=== PATIENT | male | born 1935 | race Caucasian/White ===

== ENCOUNTER 2017-10-10 09:32 | Observation (INO) | payer MEDICARE, BC ==
[~2017-10-10] VITALS: Ht 185.4 cm; Wt 82.5 kg
[2017-10-10 09:41] VITALS: BP 218/102; PULSE 81; RESP 18; TEMP 97.4; O2SAT 98
[2017-10-10] MEDS ORDERED: ONDANSETRON HCL 4 MG/2 ML VIAL IV PUSH ONE (10:30)
[2017-10-10 10:35] LABS: AUTOMATED NEUTROPHIL # 9.9 TH/MM3 (1.8-7.7); BASOPHIL # 0.3 TH/MM3 (0-0.2); BASOPHIL % 3.2 % (0.0-2.0); EOSINOPHIL % 0.1 % (0.0-4.0); HEMATOCRIT 42.2 % (39.0-51.0); HEMOGLOBIN 13.9 GM/DL (13.0-17.0); LYMPH % 3.6 % (9.0-44.0); LYMPHOCYTE # 0.4 TH/MM3 (1.0-4.8); MEAN CELL VOLUME 95.7 FL (80.0-100.0); MEAN CORPUSCULAR HEMOGLOBIN 31.6 PG (27.0-34.0); MEAN PLATELET VOLUME 7.2 FL (7.0-11.0); MONO % 2.3 % (0.0-8.0); MONOCYTE # 0.3 TH/MM3 (0-0.9); NEUT % 90.8 % (16.0-70.0); PLATELET COUNT 201 TH/MM3 (150-450); RED BLOOD COUNT 4.41 MIL/MM3 (4.50-5.90); RED CELL DISTRIBUTION WIDTH 18.2 % (11.6-17.2); WHITE BLOOD COUNT 10.9 TH/MM3 (4.0-11.0)
[2017-10-10 10:44] LABS: CHLORIDE 98 MEQ/L (98-107); SODIUM (NA) 135 MEQ/L (136-145)
[2017-10-10] MEDS ORDERED: MORPHINE SULFATE 2 MG/ML INJ IV PUSH ONE (10:45)
[2017-10-10 10:47] LABS: CALCIUM 8.9 MG/DL (8.5-10.1)
[2017-10-10 10:48] LABS: ALBUMIN 3.9 GM/DL (3.4-5.0); BICARBONATE 24.2 MEQ/L (21.0-32.0); BLOOD UREA NITROGEN 24 MG/DL (7-18); GLUCOSE,RANDOM 171 MG/DL (74-106)
[2017-10-10 10:51] LABS: ALT (GPT) 26 U/L (12-78); AST (GOT) 23 U/L (15-37); GLOMERULAR FILTRATION RATE 45 ML/MIN (>89)
[2017-10-10 10:52] LABS: TOTAL BILIRUBIN ADULT 1.4 MG/DL (0.2-1.0); TOTAL PROTEIN 7.7 GM/DL (6.4-8.2)
[2017-10-10 10:54] LABS: ALKALINE PHOSPHATASE 100 U/L (45-117)
[2017-10-10] MEDS ORDERED: ATOR10TA15 PO (11:02)
[2017-10-10] MEDS ORDERED: CARV3.125 PO (11:02)
[2017-10-10] MEDS ORDERED: FERR325T18 PO (11:02)
[2017-10-10] MEDS ORDERED: AMIO0.1T PO (11:02)
[2017-10-10] MEDS ORDERED: APIX5TAB PO (11:02)
[2017-10-10] MEDS ORDERED: CELE200C PO (11:02)
[2017-10-10 11:12] VITALS: RESP 16; O2SAT 99
[2017-10-10 11:24] LABS: BILIRUBIN, URINE NEG (NEG); BLOOD, URINE NEG (NEG); GLUCOSE,URINE NEG (NEG); KETONE, URINE NEG (NEG); NITRITE,URINE NEG (NEG); PH, URINE 7.5 (5.0-8.5); URINE COLOR YELLOW (YELLW/STRAW); URINE LEUKOCYTE ESTERASE NEG (NEG)
[2017-10-10 11:34] LABS: SQUAMOUS EPITHELIAL CELL URINE 0-5 /hpf (0-5)
[2017-10-10] MEDS ORDERED: IOHEXOL 350 MG/ML 10 ML VIAL (for RAD DIAG) IVCONTRAST ONE (11:38)
--- NOTE | 2017-10-10 11:57 | PD ---
HPI Chief Complaint: Abdominal Pain Time Seen by Provider: 10:26 Travel History International Travel<30 days: No Contact w/Intl Traveler<30days: No Traveled to known affect area: No History of Present Illness HPI 82-year-old male presents with vomiting and diffuse abdominal pain since 1 AM this morning. He denies recurrent history of this. He states he went to an urgent care and they sent him here for further evaluation. He states he is visiting from out of town. He denies any other concurrent complaints. Quality is sharp. Severity is moderate. He denies specific migration the pain. Duration is since 1 AM this morning. He does note history of a hernia to his abdomen but denies prior history of obstruction. He states his last bowel movement was this morning and was a little loose. PFSH Past Medical History Hx Anticoagulant Therapy: Yes (ELIQUIS) Cardiac Catheterization: Yes Cardiovascular Problems: Yes (PACEMAKER, TRIPLE CABG) High Cholesterol: Yes Coronary Artery Disease: Yes Hypertension: Yes Thyroid Disease: Yes (hypo ) Tetanus Vaccination: Unknown Influenza Vaccination: Yes Past Surgical History Appendectomy: Yes Cardiac Surgery: Yes (triple bypass 2000, 3 stents) Cholecystectomy: Yes Coronary Artery Bypass Graft: Yes Pacemaker: Yes Other Surgery: Yes (lamenectomy ) Social History Alcohol Use: Yes (daily) Tobacco Use: No Substance Use: No Allergies-Medications (Allergen,Severity, Reaction): Coded Allergies: No Known Allergies (Unverified , 10/10/17) Reported Meds & Prescriptions Reported Meds & Active Scripts Active Reported Eliquis (Apixaban) 5 Mg Tab 10 Mg PO BID Ferrous Sulfate 325 Mg (65 Mg Iron) Tablet 325 Mg PO DAILY Amiodarone (Amiodarone HCl) 100 Mg Tab 100 Mg PO DAILY Atorvastatin (Atorvastatin Calcium) 10 Mg Tab 10 Mg PO HS Celebrex (Celecoxib) 200 Mg Cap 200 Mg PO DAILY Coreg (Carvedilol) 3.125 Mg Tab 3.125 Mg PO BID Review of Systems Except as stated in HPI: all other systems reviewed are Neg Physical Exam Narrative GENERAL: 82-year-old male in no apparent distress SKIN: Focused skin assessment warm/dry. HEAD: Atraumatic. Normocephalic. EYES: No scleral icterus. No injection or drainage. ENT: No nasal bleeding or discharge. Mucous membranes pink and moist. NECK: Trachea midline. CARDIOVASCULAR: Regular rate and rhythm. No murmur appreciated. RESPIRATORY: No accessory muscle use. Clear to auscultation. Breath sounds equal bilaterally. GASTROINTESTINAL: Abdomen soft, diffusely tender, central midline reducible hernia just above the umbilicus noted, nondistended. MUSCULOSKELETAL: No obvious deformities. No clubbing. No cyanosis. NEUROLOGICAL: Awake and alert. No obvious cranial nerve deficits. Motor grossly within normal limits. Normal speech Data Data Last Documented VS Vital Signs Date Time Temp Pulse Resp B/P (MAP) Pulse Ox O2 Delivery O2 Flow Rate FiO2 10/10/17 12:18 62 17 160/70 (100) 96 Room Air 10/10/17 09:41 97.4 Orders Orders Complete Blood Count With Diff (10/10/17 10:26) Comprehensive Metabolic Panel (10/10/17 10:26) Urinalysis - C+S If Indicated (10/10/17 10:26) Lipase (10/10/17 10:26) Ct Abd/Pel W Iv Contrast(Rout) (10/10/17 ) Iv Access Insert/Monitor (10/10/17 10:26) Oximetry (10/10/17 10:26) Ondansetron Inj (Zofran Inj) (10/10/17 10:30) Morphine Inj (Morphine Inj) (10/10/17 10:45) Iohexol 350 Inj (Omnipaque 350 Inj) (10/10/17 11:38) Sodium Chlorid 0.9% 500 Ml Inj (Ns 500 M (10/10/17 12:00) Admit Order (Ed Use Only) (10/10/17 12:25) Labs Laboratory Tests Test 10/10/17 10:31 10/10/17 11:10 White Blood Count 10.9 TH/MM3 Red Blood Count 4.41 MIL/MM3 Hemoglobin 13.9 GM/DL Hematocrit 42.2 % Mean Corpuscular Volume 95.7 FL Mean Corpuscular Hemoglobin 31.6 PG Mean Corpuscular Hemoglobin Concent 33.0 % Red Cell Distribution Width 18.2 % Platelet Count 201 TH/MM3 Mean Platelet Volume 7.2 FL Neutrophils (%) (Auto) 90.8 % Lymphocytes (%) (Auto) 3.6 % Monocytes (%) (Auto) 2.3 % Eosinophils (%) (Auto) 0.1 % Basophils (%) (Auto) 3.2 % Neutrophils # (Auto) 9.9 TH/MM3 Lymphocytes # (Auto) 0.4 TH/MM3 Monocytes # (Auto) 0.3 TH/MM3 Eosinophils # (Auto) 0.0 TH/MM3 Basophils # (Auto) 0.3 TH/MM3 CBC Comment AUTO DIFF Differential Comment AUTO DIFF CONFIRMED Blood Urea Nitrogen 24 MG/DL Creatinine 1.50 MG/DL Random Glucose 171 MG/DL Total Protein 7.7 GM/DL Albumin 3.9 GM/DL Calcium Level 8.9 MG/DL Alkaline Phosphatase 100 U/L Aspartate Amino Transf (AST/SGOT) 23 U/L Alanine Aminotransferase (ALT/SGPT) 26 U/L Total Bilirubin 1.4 MG/DL Sodium Level 135 MEQ/L Potassium Level 4.0 MEQ/L Chloride Level 98 MEQ/L Carbon Dioxide Level 24.2 MEQ/L Anion Gap 13 MEQ/L Estimat Glomerular Filtration Rate 45 ML/MIN Lipase 108 U/L Urine Color YELLOW Urine Turbidity CLEAR Urine pH 7.5 Urine Specific [place] 1.015 Urine Protein TRACE mg/dL Urine Glucose (UA) NEG mg/dL Urine Ketones NEG mg/dL Urine Occult Blood NEG Urine Nitrite NEG Urine Bilirubin NEG Urine Urobilinogen 1.0 MG/DL Urine Leukocyte Esterase NEG Urine Squamous Epithelial Cells 0-5 /hpf Microscopic Urinalysis Comment CULT NOT INDICATED MDM Medical Decision Making Medical Screen Exam Complete: Yes Emergency Medical Condition: Yes Medical Record Reviewed: Yes (past history confirmed) Interpretation(s) CBC & BMP Diagram 10/10/17 10:31 Total Protein 7.7, Albumin 3.9, Calcium Level 8.9, Alkaline Phosphatase 100, Aspartate Amino Transf (AST/SGOT) 23, Alanine Aminotransferase (ALT/SGPT) 26, Total Bilirubin 1.4 H Last 24 hours Impressions Abdomen/Pelvis CT 10/10/17 0000 Signed Impressions: Service Date/Time: Tuesday, October 10, 2017 11:30 - CONCLUSION: 1. Mildly prominent fluid filled loops of small bowel. A bursa diagnosis includes mild ileus. Cannot definitely exclude a very early obstructive pattern. This could be followed. No free fluid or free air. 2. Prostatic enlargement. 3. Complex cyst upper pole right kidney containing some calcification. 4. Dense coronary calcifications. Wero Tomlinson MD Differential Diagnosis Stone, obstruction, pancreatitis, gastroenteritis Narrative Course Will check blood work, urinalysis, CT scan abdominal pelvis and dose with Zofran and pain medication and reevaluate Patient updated and given CT findings agrees to observation for serial abdominal exams and gentle IV fluids with renal insufficiency. Physician Communication Physician Communication dr rodgers agrees to observation Diagnosis Primary Impression: Abdominal pain Qualified Codes: R10.9 - Unspecified abdominal pain Additional Impression: Renal insufficiency Admitting Information Admitting Physician Requests: Observation Vickie Mcarthur MD Oct 10, 2017 11:57
--- NOTE | 2017-10-10 11:59 | RADRPT ---
EXAM DATE/TIME: 10/10/2017 11:30 [facility] COMPARISON: No previous studies available for comparison. INDICATIONS : Diffuse abdominal pain. Nausea and vomiting. IV CONTRAST: 85 cc Omnipaque 350 (iohexol) IV ORAL CONTRAST: No oral contrast ingested. RADIATION DOSE: 12.94 CTDIvol (mGy) MEDICAL HISTORY : Cardiovascular disease. SURGICAL HISTORY : Pacemaker. Cholecystectomy.Appendectomy.CABG ENCOUNTER: Initial ACUITY: 1 day PAIN SCALE: 10/10 LOCATION: Diffuse abdomen. TECHNIQUE: Volumetric scanning of the abdomen and pelvis was performed. Using automated exposure control and ad justment of the mA and/or kV according to patient size, radiation dose was kept as low as reasonably achievable to obtain optimal diagnostic quality images. DICOM format image data is available electro nically for review and comparison. FINDINGS: Lung bases are clear. Pacer leads overlie right atrium and right ventricle. Dense coronary calcificat ions. Dense coronary calcifications. No acute findings in the liver, spleen, adrenals, pancreas. Complex ex ophytic cyst upper pole right kidney measuring about 2.5 cm in diameter. There is some borderline dilatation of multiple fluid filled loops of small bowel. This probably repr esents an ileus although cannot exclude early distal obstruction. Postoperative cholecystectomy, appendectomy. Advanced degenerative changes in lumbar spine. Small hia osvaldo hernia. CONCLUSION: 1. Mildly prominent fluid filled loops of small bowel. A bursa diagnosis includes mild ileus. Cannot definitely exclude a very early obstructive pattern. This could be followed. No free fluid or free ai r. 2. Prostatic enlargement. 3. Complex cyst upper pole right kidney containing some calcification. 4. Dense coronary calcifications. Wero Tomlinson MD on October 10, 2017 at 11:46 Board Certified Radiologist. This report was verified electronically.
[2017-10-10] MEDS ORDERED: SODIUM CHLORID 0.9% 500 ML INJ 500 ML IV ONE (12:00)
[2017-10-10 12:18] VITALS: BP 160/70; PULSE 62; RESP 17; O2SAT 96
[2017-10-10] MEDS ORDERED: ONDANSETRON HCL 4 MG/2 ML VIAL IVP PRN (12:45)
[2017-10-10] MEDS ORDERED: SODIUM CHLORIDE 0.9% FLUSH 10 ML FLUSH IV FLUSH PRN (12:45)
[2017-10-10] MEDS ORDERED: MAGNESIUM HYDROXIDE SUSP 30 ML CUP PO PRN (12:45)
[2017-10-10] MEDS ORDERED: MORPHINE SULFATE 2 MG/ML INJ IV PUSH PRN ×2 (12:45)
[2017-10-10] MEDS ORDERED: NALOXONE HCL 0.4 MG/ML AMP IV PUSH PRN (12:45)
[2017-10-10] MEDS: SODIUM CHLOR 0.9% 1000 ML INJ 1,000 ML IV SCH ×2 (13:28→20:32)
[2017-10-10 13:31] VITALS: BP 158/74; PULSE 63; RESP 18; O2SAT 99
[2017-10-10 14:06] VITALS: BP 169/84
--- NOTE | 2017-10-10 17:34 | HHI.HP ---
[facility] Non[facility]Staff Admission Diagnosis abdominal pain, renal insufficiency Diagnoses: (1) Gastritis (2) Ileus (3) Abdominal pain (4) Renal insufficiency Chief Complaint: Intractable nausea vomiting Travel History International Travel<30 Days: No Contact w/Intl Traveler <30 Da: No Traveled to Known Affected Are: No History of Present Illness This is an 82-year-old male with known history of atrial fibrillation , hypertension, hyperlipidemia, coronary artery disease, hypothyroidism who presented to the hospital because intractable nausea and vomiting. Patient states that he has normal state of health yesterday and he woke up and he had pancakes for breakfast and then at lunch he had an egg salad sandwich with potato chips. Then for dinner he had leftover and Fish food to consist of fish , shrimp, mac & cheese, coleslaw. Patient had a glass of wine and a room drinking went to bed at approximately 1130 that night. This morning it 1:30 AM he woke up out of a sound sleep with abdominal discomfort and had to go to the restroom and started having large volume nausea and vomiting. Patient states that he cannot get any relief in over the next 4-5 hours he thinks that he vomited at least 40 times. He started developing abdominal pain after the vomiting. He did have a bowel movement during this episode which was soft stool. He denies any diarrhea. Patient was concerned because he has a ventral hernia which he may have thought of gotten obstructed. So he came to the emergency department for evaluation. Patient had workup done which did not indicate any obstructive hernia. Did show some mild dehydration, renal insufficiency, possible ileus. The patient indicates that the ER physician convinced him to stay in the hospital for further evaluation and management. Presently the patient is doing much better. He does have an appetite. He is asking to be able to eat. He is no longer experiencing any abdominal pain. He denied any hematemesis, coffee-ground emesis, melena, hematochezia. Review of Systems Gastrointestinal: COMPLAINS OF: Abdominal pain, Nausea, Vomiting Except as stated in HPI: all other systems reviewed are Neg Past Family Social History Past Medical History Atrial fibrillation Hypertension Hyperlipidemia Coronary disease Hypothyroidism Past Surgical History Appendectomy Coronary artery bypass surgery 3 vessel Cardiac catheterization with stenting Pacemaker Reported Medications Reported Meds & Active Scripts Active Reported Eliquis (Apixaban) 5 Mg Tab 10 Mg PO BID Ferrous Sulfate 325 Mg (65 Mg Iron) Tablet 325 Mg PO DAILY Amiodarone (Amiodarone HCl) 100 Mg Tab 100 Mg PO DAILY Atorvastatin (Atorvastatin Calcium) 10 Mg Tab 10 Mg PO HS Celebrex (Celecoxib) 200 Mg Cap 200 Mg PO DAILY Coreg (Carvedilol) 3.125 Mg Tab 3.125 Mg PO BID Allergies: Coded Allergies: No Known Allergies (Unverified , 10/10/17) Family History Reviewed and significant for mother at age 86 with a lot of back problems. Father and he had a valve replacement Social History Patient quit smoking in 1973, prior to that he smoked 1-1/2 pack of cigarettes a day since he was 20 years old. Does drink a glass of wine at least 5 out of 7 days of the week. Denies any illicit drug Physical Exam Vital Signs Vital Signs Date Time Temp Pulse Resp B/P (MAP) Pulse Ox O2 Delivery O2 Flow Rate FiO2 10/10/17 14:06 61 17 169/84 (112) 99 10/10/17 13:31 63 18 158/74 (102) 99 Room Air 10/10/17 12:18 62 17 160/70 (100) 96 Room Air 10/10/17 11:15 16 10/10/17 11:12 16 99 Room Air 10/10/17 09:41 97.4 81 18 218/102 (140) 98 Room Air Physical Exam GENERAL: Well-developed, well-nourished, in no acute distress. alert and orientated HEENT: Head is normocephalic without any lesions or masses noted. Facial features are symmetric. Eyes: Pupils equal round reactive to light. Extraocular muscles are intact. Conjunctivae were clear. Oropharyngeal: Pharynx without any erythema edema. Tongue is midline without deviation. Buccal mucosa is moist without any masses or lesions NECK: Supple without any masses. Trachea midline no deviation. No JVD, no bruits are appreciated CARDIAC: Regular rhythm, regular rate. S1/S2 are heard. 2/6 ejection murmur noted in the mitral area. No gallops or rubs. LUNGS: Clear to auscultation bilaterally. No wheeze, rhonchi or rales. No use of accessory muscles on inspiration or expiration. ABDOMEN: Soft, nontender. Nondistended. Bowel sounds heard in all 4 quadrants. No organomegaly or masses. Negative rebound, negative guarding EXTREMITIES: No edema, pulses are equal bilaterally. No cyanosis or clubbing NEUROLOGY: Mood and affect appear appropriate. Cranial nerves II through XII grossly intact. Muscle strength 5/5 in upper and lower extremities bilaterally. Deep tendon reflexes are 2+ in upper and lower extremities bilaterally. Laboratory Laboratory Tests Test 10/10/17 10:31 10/10/17 11:10 White Blood Count 10.9 Red Blood Count 4.41 Hemoglobin 13.9 Hematocrit 42.2 Mean Corpuscular Volume 95.7 Mean Corpuscular Hemoglobin 31.6 Mean Corpuscular Hemoglobin Concent 33.0 Red Cell Distribution Width 18.2 Platelet Count 201 Mean Platelet Volume 7.2 Neutrophils (%) (Auto) 90.8 Lymphocytes (%) (Auto) 3.6 Monocytes (%) (Auto) 2.3 Eosinophils (%) (Auto) 0.1 Basophils (%) (Auto) 3.2 Neutrophils # (Auto) 9.9 Lymphocytes # (Auto) 0.4 Monocytes # (Auto) 0.3 Eosinophils # (Auto) 0.0 Basophils # (Auto) 0.3 CBC Comment AUTO DIFF Differential Comment AUTO DIFF CONFIRMED Blood Urea Nitrogen 24 Creatinine 1.50 Random Glucose 171 Total Protein 7.7 Albumin 3.9 Calcium Level 8.9 Alkaline Phosphatase 100 Aspartate Amino Transf (AST/SGOT) 23 Alanine Aminotransferase (ALT/SGPT) 26 Total Bilirubin 1.4 Sodium Level 135 Potassium Level 4.0 Chloride Level 98 Carbon Dioxide Level 24.2 Anion Gap 13 Estimat Glomerular Filtration Rate 45 Lipase 108 Urine Color YELLOW Urine Turbidity CLEAR Urine pH 7.5 Urine Specific [place] 1.015 Urine Protein TRACE Urine Glucose (UA) NEG Urine Ketones NEG Urine Occult Blood NEG Urine Nitrite NEG Urine Bilirubin NEG Urine Urobilinogen 1.0 Urine Leukocyte Esterase NEG Urine Squamous Epithelial Cells 0-5 Microscopic Urinalysis Comment CULT NOT INDICATED Result Diagram: 10/10/17 1031 10/10/17 1031 Imaging Last Impressions Abdomen/Pelvis CT 10/10/17 0000 Signed Impressions: Service Date/Time: Tuesday, October 10, 2017 11:30 - CONCLUSION: 1. Mildly prominent fluid filled loops of small bowel. A bursa diagnosis includes mild ileus. Cannot definitely exclude a very early obstructive pattern. This could be followed. No free fluid or free air. 2. Prostatic enlargement. 3. Complex cyst upper pole right kidney containing some calcification. 4. Dense coronary calcifications. MD Samy Josephi VTE Risk Assessment Caprini VTE Risk Assessment: Mod/High Risk (score >= 2) Caprini Risk Assessment Model Point Value = 1 Point Value = 2 Point Value = 3 Point Value = 5 Age 41-60 Minor surgery BMI > 25 kg/m2 Swollen legs Varicose veins or History of unexplained or recurrent spontaneous Oral contraceptives or hormone replacement Sepsis (< 1 month) Serious lung disease, including pneumonia (< 1 month) Abnormal pulmonary function Acute myocardial infarction Congestive heart failure (< 1 month) History of inflammatory bowel disease Medical patient at bed rest Age 61-74 Arthroscopic surgery Major open surgery (> 45 min) Laparoscopic surgery (> 45 min) Malignancy Confined to bed (> 72 hours) Immobilizing plaster cast Central venous access Age >= 75 History of VTE Family history of VTE Factor V Leiden Prothrombin [id number] Lupus anticoagulant Anticardiolipin antibodies Elevated serum homocysteine Heparin-induced thrombocytopenia Other congenital or acquired thrombophilia Stroke (< 1 month) Elective arthroplasty Hip, pelvis, or leg fracture Acute spinal cord injury (< 1 month) Prophylaxis Regimen Total Risk Factor Score Risk Level Prophylaxis Regimen 0-1 Low Early ambulation 2 Moderate Order ONE of the following: *Sequential Compression Device (SCD) *Heparin 5000 units SQ BID 3-4 Higher Order ONE of the following medications: *Heparin 5000 units SQ TID *Enoxaparin/Lovenox 40 mg SQ daily (WT < 150 kg, CrCl > 30 mL/min) *Enoxaparin/Lovenox 30 mg SQ daily (WT < 150 kg, CrCl > 10-29 mL/min) *Enoxaparin/Lovenox 30 mg SQ BID (WT < 150 kg, CrCl > 30 mL/min) AND/OR *Sequential Compression Device (SCD) 5 or more Highest Order ONE of the following medications: *Heparin 5000 units SQ TID (Preferred with Epidurals) *Enoxaparin/Lovenox 40 mg SQ daily (WT < 150 kg, CrCl > 30 mL/min) *Enoxaparin/Lovenox 30 mg SQ daily (WT < 150 kg, CrCl > 10-29 mL/min) *Enoxaparin/Lovenox 30 mg SQ BID (WT < 150 kg, CrCl > 30 mL/min) AND *Sequential Compression Device (SCD) Assessment and Plan Assessment and Plan Abdominal pain with intractable nausea, vomiting Could be secondary to food poisoning, viral gastritis Continue IV fluids Start clear liquid diet Zofran as needed CT of the abdomen indicated prominent filled loops of small bowel. Could be mild ileus. Cannot exclude early obstructive pattern. Prerenal azotemia Likely secondary to dehydration, nausea vomiting Continue IV fluids Monitor renal function Atrial fibrillation, coronary disease, hypertension, hyper lipidemia Continue home medications Patient anticoagulated on Eliquis DVT prevention Patient is on Eliquis Problem Qualifiers (1) Abdominal pain: Qualified Codes: R10.9 - Unspecified abdominal pain Thomas Corrales Oct 10, 2017 17:34
[2017-10-10] MEDS ORDERED: PILL SPLITTER OTHER PRN (18:00)
[2017-10-10] MEDS ORDERED: ZOLPIDEM TARTRATE 5 MG TAB PO PRN (19:15)
[2017-10-10] MEDS: SODIUM CHLORIDE 0.9% FLUSH 10 ML FLUSH IV FLUSH SCH (19:43)
[2017-10-10 20:00] VITALS: BP 157/88; PULSE 76; RESP 20; TEMP 96.7; O2SAT 98
[2017-10-10] MEDS: APIXABAN 5 MG TABLET PO SCH (20:31)
[2017-10-10] MEDS: CARVEDILOL 3.125 MG TAB PO SCH (20:31)
[2017-10-10] MEDS ORDERED: ATORVASTATIN 10 MG TAB PO SCH (21:00)
[2017-10-11] VITALS: BP 144/81; PULSE 60; RESP 20; TEMP 98; O2SAT 98
[2017-10-11 07:32] LABS: AUTOMATED NEUTROPHIL # 4.9 TH/MM3 (1.8-7.7); BASOPHIL % 0.3 % (0.0-2.0); EOSINOPHIL # 0.1 TH/MM3 (0-0.4); EOSINOPHIL % 1.6 % (0.0-4.0); HEMATOCRIT 35.7 % (39.0-51.0); HEMOGLOBIN 11.3 GM/DL (13.0-17.0); LYMPH % 9.5 % (9.0-44.0); LYMPHOCYTE # 0.6 TH/MM3 (1.0-4.8); MEAN CELL VOLUME 95.6 FL (80.0-100.0); MEAN CORPUSCULAR HEMOGLOBIN 30.4 PG (27.0-34.0); MEAN CORPUSCULAR HGB CONC 31.8 % (32.0-36.0); MEAN PLATELET VOLUME 7.4 FL (7.0-11.0); MONO % 9.4 % (0.0-8.0); MONOCYTE # 0.6 TH/MM3 (0-0.9); NEUT % 79.2 % (16.0-70.0); PLATELET COUNT 170 TH/MM3 (150-450); RED BLOOD COUNT 3.73 MIL/MM3 (4.50-5.90); RED CELL DISTRIBUTION WIDTH 18.6 % (11.6-17.2); WHITE BLOOD COUNT 6.2 TH/MM3 (4.0-11.0)
[2017-10-11 08:00] VITALS: TEMP 96.2; O2SAT 95
[2017-10-11 08:09] LABS: ALBUMIN 2.8 GM/DL (3.4-5.0); ALKALINE PHOSPHATASE 71 U/L (45-117); ALT (GPT) 21 U/L (12-78); AST (GOT) 22 U/L (15-37); BICARBONATE 27.3 MEQ/L (21.0-32.0); BLOOD UREA NITROGEN 18 MG/DL (7-18); CALCIUM 7.9 MG/DL (8.5-10.1); CHLORIDE 107 MEQ/L (98-107); GLOMERULAR FILTRATION RATE 72 ML/MIN (>89); GLUCOSE,RANDOM 80 MG/DL (74-106); SODIUM (NA) 139 MEQ/L (136-145); TOTAL BILIRUBIN ADULT 0.8 MG/DL (0.2-1.0); TOTAL PROTEIN 5.7 GM/DL (6.4-8.2)
[2017-10-11 08:40] VITALS: BP 172/90; PULSE 60; RESP 18
[2017-10-11] MEDS: SODIUM CHLOR 0.9% 1000 ML INJ 1,000 ML IV SCH (08:44)
[2017-10-11] MEDS: SODIUM CHLORIDE 0.9% FLUSH 10 ML FLUSH IV FLUSH SCH (08:46)
[2017-10-11] MEDS: APIXABAN 5 MG TABLET PO SCH (08:46)
[2017-10-11] MEDS: CARVEDILOL 3.125 MG TAB PO SCH (08:46)
[2017-10-11] MEDS ORDERED: AMIODARONE 200 MG TAB PO SCH (09:00)
[2017-10-11] MEDS ORDERED: FERROUS SULFATE 325 MG (65 MG ELEMENTAL IRON) TAB PO SCH (09:00)
--- NOTE | 2017-10-11 09:21 | HHI.PR ---
Subjective Remarks Patient seen and examined today for follow-up on abdominal pain, nausea, vomiting, possible ileus/obstruction. CT. Patient states that he is doing much better. He is tolerating liquids last night, had a full breakfast this morning. He is feeling fantastic. States that he even had a bowel movement this morning. He is very eager to go home and wishes to be discharged. Objective Vitals Vital Signs Date Time Temp Pulse Resp B/P (MAP) Pulse Ox O2 Delivery O2 Flow Rate FiO2 10/11/17 08:40 60 18 172/90 (117) 10/11/17 00:00 98.0 60 20 144/81 (102) 98 10/10/17 20:00 96.7 76 20 157/88 (111) 98 10/10/17 14:06 61 17 169/84 (112) 99 10/10/17 13:31 63 18 158/74 (102) 99 Room Air 10/10/17 12:18 62 17 160/70 (100) 96 Room Air 10/10/17 11:15 16 10/10/17 11:12 16 99 Room Air 10/10/17 09:41 97.4 81 18 218/102 (140) 98 Room Air I/O 10/10/17 10/10/17 10/10/17 10/11/17 10/11/17 10/11/17 07:00 15:00 23:00 07:00 15:00 23:00 Intake Total 500 ml 2 ml 220 ml 300 ml Output Total 225 ml 200 ml Balance 500 ml 2 ml -5 ml 100 ml Intake Oral 220 ml 300 ml IV Total 500 ml 2 ml Output Urine Total 225 ml 200 ml # Voids 1 # Bowel Movements 0 Result Diagram: 10/11/17 0630 10/11/17 0630 Objective Remarks GENERAL: Well-developed, well-nourished, in no acute distress. alert and orientated HEENT: Head is normocephalic without any lesions or masses noted. Facial features are symmetric. Eyes: Extraocular muscles are intact. Conjunctivae were clear. NECK: Supple without any masses. Trachea midline no deviation. No JVD, CARDIAC: Regular rhythm, regular rate. S1/S2 are heard. No murmurs gallops or rubs. LUNGS: Clear to auscultation bilaterally. No wheeze, rhonchi or rales. No use of accessory muscles on inspiration or expiration. ABDOMEN: Soft, nontender. Nondistended. Bowel sounds heard in all 4 quadrants. No organomegaly or masses. Negative rebound, negative guarding EXTREMITIES: No edema, pulses are equal bilaterally. No cyanosis or clubbing NEUROLOGY: Mood and affect appear appropriate. Cranial nerves II through XII grossly intact. Moving all extremities, speech is clear A/P Assessment and Plan Abdominal pain with intractable nausea, vomiting, resolved Likely secondary to food poisoning, viral gastritis Continue IV fluids Diet has been advanced and patient tolerating quite well. Zofran as needed CT of the abdomen indicated prominent filled loops of small bowel. Could be mild ileus. Cannot exclude early obstructive pattern. Patient has had bowel movement this morning. Prerenal azotemia, resolved Likely secondary to dehydration, nausea vomiting Continue IV fluids Monitor renal function Atrial fibrillation, coronary disease, hypertension, hyper lipidemia Continue home medications Patient anticoagulated on Eliquis Patient blood pressure is mildly elevated. Start Norvasc 5 mg daily Repeat blood showed improvement with initiation of Norvasc. DVT prevention Patient is on Eliquis Discharge Planning Discharge home in stable condition Activity: Ad nacho. Diet: Healthy heart diet Medication per medication reconciliation Follow-up with primary medical doctor in 1 week Thomas Corrales Oct 11, 2017 09:21
[2017-10-11] MEDS ORDERED: ZOFR4TAB3 SL (09:22)
--- NOTE | 2017-10-11 09:22 | HHI.DCPOC ---
Discharge Care Plan Diagnosis: (1) Abdominal pain (2) Gastritis (3) Renal insufficiency Goals to Promote Your Health * To prevent worsening of your condition and complications * To maintain your health at the optimal level Directions to Meet Your Goals Take your medications as prescribed Follow your dietary instruction Follow activity as directed Keep your appointments as scheduled Take your immunizations and boosters as scheduled If your symptoms worsen call your PCP, if no PCP go to Urgent Care Center or Emergency Room Smoking is Dangerous to Your Health. Avoid second hand smoke Call the 24-hour hour crisis hotline for domestic abuse at Thomas Corrales Oct 11, 2017 09:22
[2017-10-11] MEDS ORDERED: AMLO5TAB2 PO (09:24)
[2017-10-11] MEDS ORDERED: amLODIPine BESYLATE 5 MG TAB PO SCH (09:30)
== END 2017-10-11 11:36 | disposition home or self-care (01) ==
LOC: PHED 09:32 → PHEDA 12:26 → PH3B 14:14
PROVIDERS: ADMIT Hospitalist; ATTEND Hospitalist
DX: K56.7 Ileus, unspecified (principal); K29.70 Gastritis, unspecified, without bleeding; E86.0 Dehydration; R79.89 Other specified abnormal findings of blood chemistry; I25.10 Atherosclerotic heart disease of native coronary artery without angina pectoris; I48.91 Unspecified atrial fibrillation; I10 Essential (primary) hypertension; E78.00 Pure hypercholesterolemia, unspecified; E03.9 Hypothyroidism, unspecified; N28.9 Disorder of kidney and ureter, unspecified; K43.9 Ventral hernia without obstruction or gangrene; N40.0 Benign prostatic hyperplasia without lower urinary tract symptoms; Z95.1 Presence of aortocoronary bypass graft; Z79.01 Long term (current) use of anticoagulants; Z87.891 Personal history of nicotine dependence
CPT/HCPCS: 74177; 80053; 81001; 83690; 85025; 96361; 96374; 96375; 99285; G0378; J2270; J2405; J7030; J7040; Q9967